=== PATIENT | male | born 1955 | race Caucasian/White ===

== ENCOUNTER → 2018-01-29 | Outpatient (CLI) | payer BC ==
--- NOTE | 2018-01-29 13:18 | US ---
EXAMINATION TYPE: US abdomen complete DATE OF EXAM: 01/29/2018 COMPARISON: NONE CLINICAL HISTORY: R10.11 Right Upper Quad Pain. EXAM MEASUREMENTS: Liver Length: 14.3 cm Gallbladder Wall: 0.1 cm CBD: 0.4 cm Spleen: 9.2 cm Right Kidney: 11.4 x 5.4 x 5.4 cm Left Kidney: 10.7 x 6.0 x 5.4 cm Pancreas: Tail obscured by overlying bowel gas Liver: wnl Gallbladder: No stones seen Evidence for sonographic Maddox's sign: no CBD: wnl Spleen: wnl Right Kidney: small cyst (2.7 x 1.9 x 2.3cm) on upper pole: appears have some debris Left Kidney: No hydronephrosis or masses seen Upper IVC: wnl Abd Aorta: Obscured by overlying bowel gas IMPRESSION: 1. Complex cyst upper pole right kidney
== END | disposition home or self-care (01) ==
LOC: RADUSWWP 08:54
PROVIDERS: ATTEND Family Medicine
DX: N28.1 Cyst of kidney, acquired (principal)
CPT/HCPCS: 76700

== ENCOUNTER → 2018-06-11 | Outpatient (CLI) | payer BC ==
--- NOTE | 2018-06-11 08:59 | XR ---
Cervical spine HISTORY: Neck pain 4 views of the cervical spine There is multilevel spondylosis present. Cervical vertebral bodies show preserved height, alignment, bone mineralization. Loss of disc height present especially at C4-5, C5-6. Minimal anterolisthesis gr orlin 1 C4-5. C7-T1 not seen with certainty. Prevertebral soft tissues are normal. Facet arthropathy ch anges are present. Odontoid view is limited. There are atherosclerotic calcifications in the carotid artery distribution. IMPRESSION: Degenerative disc disease and facet arthropathy. Cervical MRI may be of benefit. Limitati ons as described.
--- NOTE | 2018-06-11 09:04 | XR ---
Left wrist HISTORY: Left wrist pain 2 views of the left wrist There is arthropathy change with spurring, hypertrophic change, subchondral sclerosis and geode forma tion at the radiocarpal joint, radioulnar joint and intercarpal joints. Small ossific densities prese nt at the distal pole level of the scaphoid and volar and dorsal aspects of the wrist. Some degenerat lamin change present at the carpometacarpal joint of the first digit. Alignment is maintained. No fract ure or dislocation. IMPRESSION: Osteoarthritic changes.
== END | disposition home or self-care (01) ==
LOC: RADXRMAIN 08:29
PROVIDERS: ATTEND Family Medicine
DX: M19.032 Primary osteoarthritis, left wrist (principal); M50.30 Other cervical disc degeneration, unspecified cervical region; M46.82 Other specified inflammatory spondylopathies, cervical region
CPT/HCPCS: 72040

== ENCOUNTER → 2020-05-09 | Outpatient (CLI) | payer BC, MEDICARE ==
--- NOTE | 2020-05-10 10:45 | NM ---
EXAMINATION TYPE: NM thyroid image w uptake DATE OF EXAM: 05/10/2020 COMPARISON: NONE HISTORY: Change in way and position TECHNIQUE: Thyroid iodine uptake is calculated and images performed after the oral administration of 305 uCi 1-123 Capsule. FINDINGS: There is asymmetric distribution of activity within the left. The 4 hour iodine uptake is calculated at 4.4% (normal range 8-14%). The 24-hour iodine uptake is calculated at 10.3% (normal ran ge 15-35%). IMPRESSION: 1. Findings suggest hypothyroidism. Slightly reduced uptake involving the left lobe of thyroid may be positional recommend correlation with ultrasound to exclude nodule.
== END | disposition home or self-care (01) ==
LOC: RADNMMAIN 08:35
PROVIDERS: ATTEND Family Medicine
DX: R93.89 Abnormal findings on diagnostic imaging of other specified body structures (principal); E05.90 Thyrotoxicosis, unspecified without thyrotoxic crisis or storm
CPT/HCPCS: 78014; A9516

== ENCOUNTER → 2020-05-16 | Outpatient (CLI) | payer BC ==
--- NOTE | 2020-05-16 17:45 | CONS ---
CONSULTATION DATE OF SERVICE: 05/16/2020 This patient is a 65-year-old gentleman who has been evaluated in Sleep Center for possible obstructive sleep apnea-hypopnea syndrome. HISTORY OF PRESENT ILLNESS/SLEEP-WAKE EVALUATION: The patient's usual sleep schedule on weekdays is from 6 p.m. to 1:30 a.m. and on weekends from 10 p.m. until 7 a.m. Usually no problems with falling asleep. No TV in bedroom. Patient sleeps in different positions. He has loud snoring and, according to his , episodes of stopped breathing during sleep. He wakes up from sleep 3 times with 2 episodes of nocturia. During the day the patient is falling asleep, has episodes of irritability, depression and anxiety. [place] Sleepiness Scale is significantly increased to 13. He takes one nap at around 3 p.m. He drinks 2 caffeinated beverages during the day. No history of sleep paralysis, hypnagogic hallucinations or cataplexy. PAST MEDICAL HISTORY: Positive for hypertension, arthritis, depression. MEDICATIONS: Tamsulosin 0.4 mg twice a day, aripiprazole 5 mg once a day, naproxen 500 mg once a day, lisinopril 10 mg once a day, citalopram 40 mg once a day. SOCIAL HISTORY: Positive for smoking; quit 3 years ago. Alcohol consumption occasional. FAMILY HISTORY: Heart problems. REVIEW OF SYSTEMS: Multiple awakenings from sleep, sleepiness during the day. PHYSICAL EXAMINATION: GENERAL: A pleasant gentleman without distress. VITAL SIGNS: BP 125/80, HR 82, RR 15, height 5 feet 7 inches, weight 194.4, temperature 98.5, oxygen saturation at room air 96%. HEENT: PERRLA, EOMI. Evaluation of oropharynx showed tongue protrudes midline. Low position of soft palate. Mallampati III. NECK: Supple. No JVD. Thyroid is not palpable. Neck measures 17 inches in circumference. LUNGS: Clear to percussion and to auscultation. Good air exchange. No wheezing or rhonchi. HEART: S1, S2 regular. No murmurs, gallops or rubs. ABDOMEN: Soft and nontender. Bowel sounds are present. No organomegaly appreciated. EXTREMITIES: No clubbing or cyanosis. KNIT GOODS MENDER: Awake, alert, and oriented X3. Cranial nerves 2 to 7 intact. There is no fasciculation or atrophy. noted. No focal deficits observed. IMPRESSION: 1. Loud snoring, witnessed episodes of stopped breathing during sleep, wide neck at 17 inches, low position of soft palate, excessive daytime sleepiness, [place] Sleepiness Scale of 13; obstructive sleep apnea-hypopnea syndrome. 2. Obesity. BMI 30.3. 3. Hypertension. 4. History of arthritis. 5. Depression. PLAN: 1. Home sleep apnea test for evaluation of patient's breathing during sleep. 2. CPAP/BiPAP titration if sleep study confirms obstructive sleep apnea-hypopnea syndrome. 3. Preferable position during sleep on the side. 4. No driving if patient feels any sleepiness. 5. I will see patient for follow up visit to explain results of testing and following plan. Thank you very much for referring this patient for consultation. Sincerely, Dayday Curran MD, PhD, FAASM Diplomat of [place] [place] [employer] Risk Intern of [facility] [place] MMODL / IJN: [id number] /
== END | disposition home or self-care (01) ==
LOC: SLEEP 16:40
PROVIDERS: ATTEND Internal Medicine
DX: G47.33 Obstructive sleep apnea (adult) (pediatric) (principal); E66.9 Obesity, unspecified; F32.9 Major depressive disorder, single episode, unspecified; I10 Essential (primary) hypertension; Z87.39 Personal history of other diseases of the musculoskeletal system and connective tissue; Z79.899 Other long term (current) drug therapy; Z99.89 Dependence on other enabling machines and devices; Z79.1 Long term (current) use of non-steroidal anti-inflammatories (NSAID); Z68.30 Body mass index [BMI] 30.0-30.9, adult
CPT/HCPCS: 99211

== ENCOUNTER → 2020-06-01 | Outpatient (CLI) | payer BC, MEDICARE ==
--- NOTE | 2020-06-01 14:10 | US ---
EXAMINATION TYPE: US thyroid st tissue head/neck DATE OF EXAM: 06/01/2020 COMPARISON: NM 05/09/2020 CLINICAL HISTORY: 65-year-old male R94.6 Abnormal results of thyroid function studies. . TECHNIQUE: Multiple sonographic images of the thyroid gland are obtained. FINDINGS: GLAND SIZE: Right Lobe: 3.6 x 1.6 x 1.4 cm Overall Parenchyma: heterogenous Left Lobe: 3.5 x 1.5 x 1.7 cm Overall Parenchyma: heterogeneous Isthmus Thickness: 0.4 cm NODULES RIGHT: # of nodules measured on right: 1 1. 0.5 X 0.4 x 0.4 cm, mid, mixed cystic and solid, hypoechoic nodule, which is wider than tall, wi th smooth margins, without echogenic foci. Prior size: no previous LEFT: # of nodules measured on left: 0 ISTHMUS: # of nodules measured in the isthmus: 0 Bilateral neck scanned, no evidence of lymphadenopathy. IMPRESSION: A tiny 5 mm hypoechoic nodule at the right midpole. No suspicious nodule seen on the left to account for the asymmetric uptake on the patient's thyroid scan images. Findings on that study likely due to position.
== END | disposition home or self-care (01) ==
LOC: RADUSWWP 12:02
PROVIDERS: ATTEND Family Medicine
DX: E04.1 Nontoxic single thyroid nodule (principal)
CPT/HCPCS: 76536

== ENCOUNTER → 2020-08-29 | Outpatient (CLI) | payer BC, MEDICARE ==
--- NOTE | 2020-08-30 07:16 | SFUN ---
SLEEP CENTER FOLLOW UP NOTE DATE OF SERVICE: 08/29/2020 65 -year-old gentleman has been followed in Sleep Center for treatment of obstructive sleep apnea-hypopnea syndrome. The patient had home sleep apnea test which showed that patient has significant abnormalities of respiration and after that he was started on treatment with CPAP. I discussed results of diagnostic home sleep apnea test with the patient in details indicating to him that treatment is necessary. Today is his first visit after he was started on treatment with CPAP and patient is able to use CPAP equipment every night, feels better with the machine, sleeping better and feels better during the day. I checked the information from the machine. Usage is 26 nights over the month for more than 4 hours. Average usage is 7 hours 29 minutes. The machine is in automatic regimen of the pressure. Range of the pressure 5-15 with average pressure 12.7 cm of water. Apnea-hypopnea index is 3.6, which is normal. 95% of the leak is 25.7 L/minute which is acceptable. [place] Sleepiness Scale today is 8. MEDICATIONS: Tamsulosin 0.4 mg twice a day. Omeprazole 5 mg once a day. Naprosyn 500 mg once a day. Lisinopril 10 mg once a day. Citalopram 40 mg once a day. PHYSICAL EXAMINATION: GENERAL: Patient in no distress. VITAL SIGNS: BP 122/82, HR 84, weight 193.2, temperature 97.8, oxygen saturation at room air 96%. Oropharynx low position of soft palate, Mallampati 3. NECK: Supple, no JVD. Thyroid is not palpable. LUNGS: Clear to percussion and to auscultation. Good air exchange. No wheezing or rhonchi. HEART: S1, S2 regular. No murmurs, gallops, or rubs. ABDOMEN: Slightly obese. Soft and nontender. Bowel sounds are present. No organomegaly appreciated. EXTREMITIES: No clubbing or cyanosis. DIRECTOR OF FUNDRAISING: Awake, alert, and oriented X3. Cranial nerves 2 to 7 intact. There is no fasciculation or atrophy. noted. No focal deficits observed. IMPRESSION: 1. Moderate obstructive sleep apnea-hypopnea syndrome; apnea-hypopnea index 19.7 with oxygen desaturation to 86% by results of home sleep apnea test which may underestimate severity of sleep apnea. The patient demonstrated good compliance with treatment benefitting from treatment normal respiration on CPAP. 2. Mild obesity. 3. Hypertension. 4. History of arthritis. 5. History of depression. PLAN: 1. Patient will continue to use PAP equipment every night for the whole night. 2. Sleep hygiene with regular time in bed for at least 7-1/2 to 8 hours. 3. Precautions related to driving. No driving if feeling sleepiness. 4. I will maintain all necessary prescription for PAP supplies including mask, tube, filters. 5. Watching weight. 6. Follow-up visit in 6 months or earlier if patient has any problems. Thank you very much for allowing me to participate in management of your patient. Sincerely, Dayday Curran MD, PhD, FAASM Diplomat of [place] [employer] Glass Processing Worker of [facility] [place] MMODL / ROSELYN: [id number] /

== ENCOUNTER → 2021-02-28 | Outpatient (CLI) | payer BC, MEDICARE ==
--- NOTE | 2021-03-01 05:58 | SFUN ---
SLEEP CENTER FOLLOW UP NOTE DATE OF SERVICE: 02/28/2021 65-year-old gentleman has been followed in Sleep Center for treatment of obstructive sleep apnea-hypopnea syndrome. The patient continues to use his CPAP equipment every night for the whole night. He is using a fullface mask, asking to be sure the position of the mask is okay while he is using machine. I checked the position of the mask on his face and it is slightly low so position was adjusted and patient was taught how to put mask on properly. I checked his CPAP unit. Range of the pressure 5-15, average pressure 11.6, usage is 27/30 nights and 21/30 nights for more than 4 hours, average 7.1 hours per night. Leak is 37 L/minute but apnea-hypopnea index 3.0, which is absolutely perfect. [place] Sleepiness Scale today is 6. CURRENT MEDICATIONS: Lisinopril 10 mg once a day, citalopram 40 mg once a day, tamsulosin 0.4 mg twice a day, omeprazole 5 mg once a day, Lipitor at nighttime. PHYSICAL EXAMINATION: GENERAL: Patient in no distress. BP 105/70, HR 84, RR 15, height 5 feet 6 inches, weight 188 pounds, body mass index 30.3. Oropharynx: Low position of soft palate, Mallampati 3. NECK: Supple, no JVD. Thyroid is not palpable. LUNGS: Clear to percussion and to auscultation. Good air exchange. No wheezing or rhonchi. HEART: S1, S2 regular. No murmurs, gallops, or rubs. ABDOMEN: Soft and nontender. Bowel sounds are present. No organomegaly appreciated. EXTREMITIES: No clubbing or cyanosis. CLUTCH INSPECTOR: Awake, alert, and oriented X3. Cranial nerves 2 to 7 intact. There is no fasciculation or atrophy. noted. No focal deficits observed. IMPRESSION: 1. Moderate obstructive sleep apnea-hypopnea syndrome AHI 19.7 by results of home test. The patient demonstrated borderline compliance with treatment. Normal respiration on CPAP. 2. Mild obesity. 3. Hypertension. 4. History of arthritis. 5. History of depression. PLAN: 1. Patient will continue to use PAP equipment every night for the whole night. 2. Sleep hygiene with regular time in bed for at least 7-1/2 to 8 hours. 3. Precautions related to driving. No driving if feeling sleepiness. 4. I will maintain all necessary prescription for PAP supplies including mask, tube, filters. 5. Watching weight. 6. Follow-up visit in 6 months or earlier if patient has any problems. Thank you very much for allowing me to participate in management of your patient. Sincerely, Dayday Curran MD, PhD, FAASM Diplomat of [employer] Sleep Medicine Board of [place] [employer] Medicine Rn Review of [facility] [place] MMODL / MOSESN: [id number] /
== END ==
LOC: SLEEP 16:22
PROVIDERS: ATTEND Internal Medicine
DX: G47.33 Obstructive sleep apnea (adult) (pediatric) (principal); E66.9 Obesity, unspecified; I10 Essential (primary) hypertension; F32.A Depression, unspecified; Z87.39 Personal history of other diseases of the musculoskeletal system and connective tissue; Z99.89 Dependence on other enabling machines and devices; Z79.899 Other long term (current) drug therapy; Z68.30 Body mass index [BMI] 30.0-30.9, adult

== ENCOUNTER → 2021-08-29 | Outpatient (CLI) | payer BC, MEDICARE ==
--- NOTE | 2021-08-29 16:56 | P.PN ---
Subjective DATE: 08/29/2021 FOLLOW UP VISIT. Patient with obstructive sleep apnea hypopnea syndrome return to sleep center for follow-up visit. Patient is using PAP equipment every night for the whole night, getting PAP supplies in time. The patient does not have significant problems with the mask, PAP unit and humidification. [place] sleepiness scale is 9. I checked information from PAP unit. PAP unit pressure 07/22/2014, average 12.7 cm H2O. Usage is 70% for more then 4 hours, average 6.9 hours per night. Leak is 28l/m, which is slightly increased. Apnea Hypopnea Index is 3.2, which is normal. MEDICATIONS:1. Naproxen 2. Tamsulosin 3. Citalopram 4. Lisinopril 5. Atorvastatin 6. Aripiprazole During physical exam: GENERAL: A pleasant patient without any distress. VITAL SIGNS: BP 111/74, HR 86, RR 16 , weight 190, temperature 98.2, oxygen saturation at room air 97 . HEENT: PERRLA, EOMI.low position of soft palate, Mallapati 3 . NECK: Supple. No JVD. LUNGS: Clear to percussion and to auscultation. Good air exchange. No wheezing or rhonchi. HEART: S1, S2 regular. ABDOMEN: Soft and nontender.[] EXTREMITIES: No clubbing or cyanosis. MANAGER PORT: Awake, alert, and oriented x3. No focal deficit. Impressions: 1. Obstructive sleep apnea-hypopnea syndrome. Patient demonstrated good compliance with treatment, benefiting from treatment. 2. Mild obesity. 3. Hypertension. 4. History of arthritis. 5. History of depression. Plan: 1. Continue using PAP equipment every night for the whole night. 2. To change air filter at least 1-2 times per month. 3. PAP unit should stay lower then position of the head. 4. Advised patient to remove all remaining water from humidifier canister daily and make it dry after each usage. Refill canister with fresh distilled water before each usage. 5. Sleep hygiene with regular time in bed for at least 8 hours. 6. Precautions related to driving. No driving if feel any sleepiness. 7. I will maintain prescription for PAP supplies including mask, tube, filters. 8. Follow up visit in 6 months or earlier if patient has any problems. 9. Watching weight. Thank you very much for allowing me to participate in the management of your patient. Dayday Curran MD, PhD, FAASM. Diplomat of [place] [employer], Sleep Medicine Board by [place] [employer] Straw Hat Washer Operator of [facility] [place]
== END ==
LOC: SLEEP 15:58
PROVIDERS: ATTEND Internal Medicine
DX: G47.33 Obstructive sleep apnea (adult) (pediatric) (principal); E66.9 Obesity, unspecified; I10 Essential (primary) hypertension; F32.A Depression, unspecified; M19.90 Unspecified osteoarthritis, unspecified site; Z79.899 Other long term (current) drug therapy

== ENCOUNTER → 2021-10-09 | Outpatient (CLI) | payer BC, MEDICARE ==
--- NOTE | 2021-10-10 09:13 | NM ---
EXAMINATION TYPE: NM thyroid image w uptake DATE OF EXAM: 10/10/2021 COMPARISON: 05/09/2020 HISTORY: Hypothyroidism TECHNIQUE: Thyroid iodine uptake is calculated and images performed after the oral administration of 315 uCi 1-123 Capsule. FINDINGS: There is normal distribution of activity throughout the gland. The 4 hour iodine uptake is calculated at 5.8% (normal range 8-14%). The 24-hour iodine uptake is calculated at 19.1% (normal ra nge 15-35%). IMPRESSION: Reduced uptake compatible with hypothyroidism.
== END | disposition home or self-care (01) ==
LOC: RADNMMAIN 08:45
PROVIDERS: ATTEND Family Medicine
DX: E03.9 Hypothyroidism, unspecified (principal)
CPT/HCPCS: 78014; A9516

== ENCOUNTER → 2022-08-28 | Outpatient (CLI) | payer BC, MEDICARE ==
--- NOTE | 2022-08-28 16:17 | P.PN ---
Subjective DATE: 08/28/2022 FOLLOW UP VISIT. Patient with obstructive sleep apnea hypopnea syndrome return to sleep center for follow-up visit. Information from previous visit have been reviewed. Patient is using PAP equipment every night for the whole night, getting PAP supplies in time. The patient does not have significant problems with the mask, PAP unit and humidification. [place] sleepiness scale is 8, which is normal. I checked information from PAP unit. PAP unit pressure 5-15, average 12.3 cm H2O. Usage is 100 % for more then 4 hours, average 7 hours per night. Leak is 21.3 l/m, which is in acceptable range. Apnea Hypopnea Index is 2.7, which is normal. MEDICATIONS:1. Flomax 4 mg twice a day 2. Lisinopril 10 mg once a day 3. Atorvastatin 10 mg once a day 4. Citalopram 40 mg once a day 5. Aripiprazole 5 mg once a day During physical exam: GENERAL: A pleasant patient without any distress. VITAL SIGNS: BP 131/78, HR 76, RR 16 , weight 187.4, temperature 97.4, oxygen saturation at room air 97 % . HEENT: PERRLA, EOMI.low position of soft palate, Mallapati 3 . NECK: Supple. No JVD. LUNGS: Clear to percussion and to auscultation. Good air exchange. No wheezing or rhonchi. HEART: S1, S2 regular. ABDOMEN: Soft and nontender.[] EXTREMITIES: No clubbing or cyanosis. RESOURCE DEVELOPMENT MANAGER: Awake, alert, and oriented x3. No focal deficit. Impressions: 1. Obstructive sleep apnea-hypopnea syndrome. Patient demonstrated great compliance with treatment, benefiting from treatment. 2. Hypertension. 3. History of depression. 4. Mild obesity. 5. History of arthritis. Plan: 1. Continue using PAP equipment every night for the whole night. 2. To change air filter at least 1-2 times per month. 3. PAP unit should stay lower then position of the head. 4. Advised patient to remove all remaining water from humidifier canister daily and make it dry after each usage. Refill canister with fresh distilled water before each usage. 5. Sleep hygiene with regular time in bed for at least 8 hours. 6. Precautions related to driving. No driving if feel any sleepiness. 7. I will maintain prescription for PAP supplies including mask, tube, filters. 8. Watching weight. 9. Follow up visit in 6 months or earlier if patient has any problems. Thank you very much for allowing me to participate in the management of your patient. Dayday Curran MD, PhD, FAASM. Diplomat of [place] [employer], Sleep Medicine Board by [place] [employer] Aircraft Instrument Repairer of [facility] [place]
== END ==
LOC: 3 N SLEEP 15:56
PROVIDERS: ATTEND Internal Medicine
DX: G47.33 Obstructive sleep apnea (adult) (pediatric) (principal); I10 Essential (primary) hypertension; Z99.89 Dependence on other enabling machines and devices; F32.A Depression, unspecified; E66.9 Obesity, unspecified; M19.90 Unspecified osteoarthritis, unspecified site; Z79.899 Other long term (current) drug therapy
CPT/HCPCS: 99212

== ENCOUNTER → 2023-03-05 | Outpatient (CLI) | payer BC, MEDICARE ==
--- NOTE | 2023-03-05 17:01 | P.PN ---
Subjective DATE: 03/05/2023 FOLLOW UP VISIT. Patient with obstructive sleep apnea hypopnea syndrome return to sleep center for follow-up visit. Information from previous visit have been reviewed. Patient is using PAP equipment every night for the whole night, getting PAP supplies in time. Occasionally patient has snoring while using CPAP according to his . The patient does not have significant problems with the mask, PAP unit and humidification. [place] sleepiness scale is 7, which is normal. I checked information from PAP unit. PAP unit pressure 5-15, average 13.5 cm H2O. Usage is 90 % for more then 4 hours, average 6.6 hours per night. Leak is 10 l/m, which is in acceptable range. Apnea Hypopnea Index is 2.6, which is normal. MEDICATIONS:1. Flomax 0.4 mg twice a day 2. Lisinopril 10 mg once a day 3. Atorvastatin 10 mg once a day 4. Aripiprazole 5 mg once a day During physical exam: GENERAL: A pleasant patient without any distress. VITAL SIGNS: BP 123/77, HR 88, RR 16 , weight 182.8, temperature 98.3, oxygen saturation at room air 99 % . HEENT: PERRLA, EOMI.low position of soft palate, Mallapati 3 . NECK: Supple. No JVD. LUNGS: Clear to percussion and to auscultation. Good air exchange. No wheezing or rhonchi. HEART: S1, S2 regular. ABDOMEN: Soft and nontender.[] EXTREMITIES: No clubbing or cyanosis. GRID TRIMMER: Awake, alert, and oriented x3. No focal deficit. I slightly changed CPAP pressure up to the range 516.6 cm of water with the goal to prevent snoring. Impressions: 1. Obstructive sleep apnea-hypopnea syndrome. Patient demonstrated great compliance with treatment, benefiting from treatment. 2. Hypertension. 3. History of depression. 4. History of arthritis. 5. Mild obesity, patient lost 5 pounds since previous visit. 6. BPH. Plan: 1. Continue using PAP equipment every night for the whole night. 2. To change air filter at least 1-2 times per month. 3. PAP unit should stay lower then position of the head. 4. Advised patient to remove all remaining water from humidifier canister daily and make it dry after each usage. Refill canister with fresh distilled water before each usage. 5. Sleep hygiene with regular time in bed for at least 8 hours. 6. Precautions related to driving. No driving if feel any sleepiness. 7. I will maintain prescription for PAP supplies including mask, tube, filters. 8. Follow up visit in 6 months or earlier if patient has any problems. 9. Watching weight. Thank you very much for allowing me to participate in the management of your patient. Dayday Curran MD, PhD, FAASM. Diplomat of [employer] Medicine, Sleep Medicine Board by [employer] Medicine Insole Reinforcer of [facility] [place]
== END ==
LOC: 3 N SLEEP 16:17
PROVIDERS: ATTEND Internal Medicine
DX: G47.33 Obstructive sleep apnea (adult) (pediatric) (principal); I10 Essential (primary) hypertension; F32.A Depression, unspecified; M19.90 Unspecified osteoarthritis, unspecified site; E66.9 Obesity, unspecified; N40.0 Benign prostatic hyperplasia without lower urinary tract symptoms; Z99.89 Dependence on other enabling machines and devices; Z79.899 Other long term (current) drug therapy
CPT/HCPCS: 99212

== ENCOUNTER → 2023-09-16 | Outpatient (CLI) | payer MEDICARE ==
[2023-09-16 13:41] VITALS: BP 132/76; PULSE 98; RESP 16; TEMP 98.1
--- NOTE | 2023-09-16 18:34 | P.PROGSL ---
Subjective DATE: 09/16/2023 FOLLOW UP VISIT. Patient with obstructive sleep apnea hypopnea syndrome return to sleep center for follow-up visit. Information from previous visit have been reviewed. Recently patient developed some problems with a using cough CPAP equipment related to pressure and mask fitting. I checked information from PAP unit. PAP unit pressure 5-16.6 cm H2O. MEDICATIONS:1. Aripiprazole 5 mg once a day 2. Tamsulosin 0.4 mg twice a day 3. Atorvastatin 10 mg once a day 4. Lisinopril 10 mg once a day 5. Naproxen During physical exam: GENERAL: A pleasant patient without any distress. VITAL SIGNS: Please see below, weight is 176.6 pounds, patient lost 6 pounds comparing with previous visit, BMI 28.8. HEENT: PERRLA, EOMI.low position of soft palate, Mallapati 3 . NECK: Supple. No JVD. LUNGS: Clear to percussion and to auscultation. Good air exchange. No wheezing or rhonchi. HEART: S1, S2 regular. ABDOMEN: Soft and nontender.[] EXTREMITIES: No clubbing or cyanosis. PETROLEUM PRODUCTS DISTRICT SUPERVISOR: Awake, alert, and oriented x3. No focal deficit. Impressions: 1. Obstructive sleep apnea-hypopnea syndrome. Patient has difficulties to use CPAP equipment secondary to pressure and mask fitting at the present time. 2. Hypertension. 3. History of depression. 4. BPH. 5. History of arthritis. Pressure was changed down to the level 5 to 14 cm of water. Plan: 1. Continue using PAP equipment every night for the whole night. Patient promised to follow recommendations. 2. To change air filter at least 1-2 times per month. 3. PAP unit should stay lower then position of the head. 4. Advised patient to remove all remaining water from humidifier canister daily and make it dry after each usage. Refill canister with fresh distilled water before each usage. 5. Sleep hygiene with regular time in bed for at least 8 hours. 6. Precautions related to driving. No driving if feel any sleepiness. 7. I will maintain prescription for PAP supplies including mask, tube, filters. 8. Follow up visit in 3 months or earlier if patient has any problems. 9. Watching weight. Thank you very much for allowing me to participate in the management of your patient. Dayday Curran MD, PhD, FAASM. Diplomat of [place] [employer] Medicine, Sleep Medicine Board by [place] [employer] Firmware Software Verification Engineer of [facility] [place] Objective - Vital Signs Vital Signs: Vital Signs Temp 98.1 F 09/16/23 13:40 Pulse 98 09/16/23 13:40 Resp 16 09/16/23 13:40 BP 132/76 09/16/23 13:40 Pulse Ox 96 09/16/23 13:40 FiO2 Intake & Output 09/15/23 09/16/23 09/16/23 18:59 06:59 18:59 Weight 80.002 kg
== END ==
LOC: 3 N SLEEP 13:12
PROVIDERS: ATTEND Internal Medicine
DX: G47.33 Obstructive sleep apnea (adult) (pediatric) (principal); I10 Essential (primary) hypertension; N40.0 Benign prostatic hyperplasia without lower urinary tract symptoms; Z87.39 Personal history of other diseases of the musculoskeletal system and connective tissue; Z99.89 Dependence on other enabling machines and devices; Z86.69 Personal history of other diseases of the nervous system and sense organs; Z79.899 Other long term (current) drug therapy
CPT/HCPCS: 99212

== ENCOUNTER → 2024-02-17 | Outpatient (CLI) | payer MEDICARE ==
[2024-02-17 14:51] VITALS: BP 132/82; PULSE 92; RESP 16; TEMP 97.9
--- NOTE | 2024-02-17 15:52 | P.PROGSL ---
Subjective DATE: 02/17/2024 FOLLOW UP VISIT. Patient with obstructive sleep apnea hypopnea syndrome return to sleep center for follow-up visit. Information from previous visit have been reviewed. Patient is using PAP equipment every night for the whole night, getting PAP supplies in time. The patient does not have significant problems with the mask, PAP unit and humidification. [place] sleepiness scale is 5, which is normal. I checked information from PAP unit. PAP unit pressure 5-14, average 11 cm H2O. Usage is 80% for more then 4 hours, average 6.7 hours per night. Leak is increased to 32 l/m, which is in acceptable range. Apnea Hypopnea Index is borderline 5.2. MEDICATIONS have been reviewed, please see below. During physical exam: GENERAL: A pleasant patient without any distress. VITAL SIGNS: Please see below, weight is 173 lbs. HEENT: PERRLA, EOMI.low position of soft palate, Mallapati 3. NECK: Supple. No JVD. LUNGS: Clear to percussion and to auscultation. Good air exchange. No wheezing or rhonchi. HEART: S1, S2 regular. ABDOMEN: Soft and nontender.[] EXTREMITIES: No clubbing or cyanosis. ASSISTANT CENTER MANAGER: Awake, alert, and oriented x3. No focal deficit. Impressions: 1. Obstructive sleep apnea-hypopnea syndrome. Patient demonstrated good compliance with treatment, benefiting from treatment. 2. Hypertension. 3. History of depression. 4. History of arthritis. 5. BPH. Plan: 1. Continue using PAP equipment every night for the whole night. 2. Sleep hygiene with regular time in bed for at least 7.5-8 hours 3. PAP unit should stay lower then position of the head. 4. Advised patient to remove all remaining water from humidifier canister daily and make it dry after each usage. Refill canister with fresh distilled water before each usage. 5. Watching weight. 6. Precautions related to driving. No driving if feel any sleepiness. 7. I will maintain prescription for PAP supplies including mask, tube, filters. 8. Follow up visit in 8 months or earlier if patient has any problems. Thank you very much for allowing me to participate in the management of your patient. Dayday Curran MD, PhD, FAASM. Diplomat of [place] [employer], Sleep Medicine Board by [place] Seo Marketing Specialist of [facility] [place] [facility] [place] Objective - Vital Signs Vital Signs: Vital Signs Temp 97.9 F 02/17/24 14:49 Pulse 92 02/17/24 14:49 Resp 16 02/17/24 14:49 BP 132/82 02/17/24 14:49 Pulse Ox 97 02/17/24 14:49 FiO2 Intake & Output 02/16/24 02/17/24 02/17/24 18:59 06:59 18:59 Weight 78.471 kg Home Medications: Home Medications Medication Instructions Recorded Confirmed Type ARIPiprazole [Aripiprazole] 5 mg PO DAILY 02/17/24 02/17/24 History Atorvastatin [Lipitor] 10 mg PO DAILY 02/17/24 02/17/24 History Naproxen [EC-Naprosyn] 500 mg PO BID 02/17/24 02/17/24 History Tamsulosin [Flomax] 0.4 mg PO DAILY 02/17/24 02/17/24 History lisinopriL [Zestril] 10 mg PO DAILY 02/17/24 02/17/24 History
== END ==
LOC: 3 N SLEEP 14:22
PROVIDERS: ATTEND Internal Medicine
DX: G47.33 Obstructive sleep apnea (adult) (pediatric) (principal); I10 Essential (primary) hypertension; N40.0 Benign prostatic hyperplasia without lower urinary tract symptoms; F32.A Depression, unspecified; Z87.39 Personal history of other diseases of the musculoskeletal system and connective tissue; Z99.89 Dependence on other enabling machines and devices; Z79.899 Other long term (current) drug therapy
CPT/HCPCS: 99212

== ENCOUNTER → 2024-10-12 | Outpatient (CLI) | payer MEDICARE ==
[2024-10-12 13:23] VITALS: BP 137/81; PULSE 84; RESP 16; TEMP 98.1
--- NOTE | 2024-10-12 13:30 | P.PROGSL ---
Subjective DATE: 10/12/2024 FOLLOW UP VISIT. Patient with obstructive sleep apnea hypopnea syndrome return to sleep center for follow-up visit. Information from previous visit have been reviewed. Patient is using PAP equipment every night for the whole night, getting PAP supplies in time. The patient does not have significant problems with the mask, PAP unit and humidification. [place] sleepiness scale is 6, which is normal. I checked information from PAP unit. PAP unit pressure 5-14, average 9.3 cm H2O. Usage is 90% for more then 4 hours, average 5.9 hours per night. Leak is 18 l/m, which is in acceptable range. Apnea Hypopnea Index is 2.3, which is normal. MEDICATIONS have been reviewed, please see below. During physical exam: GENERAL: A pleasant patient without any distress. VITAL SIGNS: Please see below, weight is 174 lbs. HEENT: PERRLA, EOMI.low position of soft palate, [place]ati 3. NECK: Supple. No JVD. LUNGS: Clear to percussion and to auscultation. Good air exchange. No wheezing or rhonchi. HEART: S1, S2 regular. ABDOMEN: Soft and nontender.[] EXTREMITIES: No clubbing or cyanosis. OVEN HEATER: Awake, alert, and oriented x3. No focal deficit. Impressions: 1. Obstructive sleep apnea-hypopnea syndrome. Patient demonstrated great compliance with treatment, benefiting from treatment. 2. Hypertension. 3. History of depression. 4. BPH. 5. History of arthritis. Plan: 1. Continue using PAP equipment every night for the whole night. 2. Sleep hygiene with regular time in bed for at least 7.5-8 hours 3. PAP unit should stay lower then position of the head. 4. Advised patient to remove all remaining water from humidifier canister daily and make it dry after each usage. Refill canister with fresh distilled water before each usage. 5. Watching weight. 6. Precautions related to driving. No driving if feel any sleepiness. 7. I will maintain prescription for PAP supplies including mask, tube, filters. 8. Follow up visit in 8 months or earlier if patient has any problems. Thank you very much for allowing me to participate in the management of your patient. Dayday Curran MD, PhD, FAASM. Diplomat of [place] [employer], Sleep Medicine Board by [employer] Profiler Operator of [facility] [place] Objective - Vital Signs Vital Signs: Vital Signs Temp 98.1 F 10/12/24 13:22 Pulse 84 10/12/24 13:22 Resp 16 10/12/24 13:22 BP 137/81 10/12/24 13:22 Pulse Ox 96 10/12/24 13:22 FiO2 Intake & Output 10/11/24 10/12/24 10/12/24 18:59 06:59 18:59 Weight 78.925 kg Home Medications: Home Medications Medication Instructions Recorded Confirmed Type ARIPiprazole [Aripiprazole] 5 mg PO DAILY 02/17/24 02/17/24 History Atorvastatin [Lipitor] 10 mg PO DAILY 02/17/24 02/17/24 History Naproxen [EC-Naprosyn] 500 mg PO BID 02/17/24 02/17/24 History Tamsulosin [Flomax] 0.4 mg PO DAILY 02/17/24 02/17/24 History lisinopriL [Zestril] 10 mg PO DAILY 02/17/24 02/17/24 History
== END ==
LOC: 3 N SLEEP 13:02
PROVIDERS: ATTEND Internal Medicine
DX: G47.33 Obstructive sleep apnea (adult) (pediatric) (principal); I10 Essential (primary) hypertension; N40.0 Benign prostatic hyperplasia without lower urinary tract symptoms; F32.A Depression, unspecified; Z87.39 Personal history of other diseases of the musculoskeletal system and connective tissue; Z99.89 Dependence on other enabling machines and devices
CPT/HCPCS: 99212

== ENCOUNTER → 2024-10-19 | Outpatient (CLI) | payer MEDICARE ==
[2024-10-19 18:25] LABS: HCT 43.5 % (39.6-50.0); HGB 13.0 g/dL (13.0-17.0); MCH 21.7 pg (27.0-32.0); MCHC 29.9 g/dL (32.0-37.0); MCV 72.7 FL (80.0-97.0); NRBC Per 100 WBC 0 X 10*3/uL (0.00-0.01); Platelet Count 293 X 10*3/uL (140-440); RBC 5.98 X 10*6/uL (4.40-5.60); RDW 16.2 % (11.5-14.5); WBC 11.52 X 10*3/uL (4.50-10.00)
[2024-10-19 19:20] LABS: Bilirubin,Urine Negative (Negative); Blood,Urine Negative (Negative); Color,Urine Yellow (Yellow); Ketones,Urine Negative (Negative); Nitrite,Urine Negative (Negative); PH, Urine 6.0; Specific Gravity,Urine 1.013 (1.001-1.030); Urobilinogen,Urine 0.2 E.U./DL
[2024-10-19 19:30] LABS: Anion Gap 12.30 mmol/L (4.00-12.00); BUN/Creat Ratio 15.91 Ratio (12.00-20.00); Blood Urea Nitrogen 17.5 mg/dL (9.0-27.0); Calcium 10.1 mg/dL (8.7-10.3); Carbon Dioxide 25.7 mmol/L (21.6-31.8); Chloride 103 mmol/L (96-109); Glucose 118 mg/dL (70-110); Potassium 4.1 mmol/L (3.5-5.5); Sodium 141 mmol/L (135-145)
== END | disposition home or self-care (01) ==
LOC: LABPAT 13:58
PROVIDERS: ATTEND Urology
DX: Z01.812 Encounter for preprocedural laboratory examination (principal); N40.1 Benign prostatic hyperplasia with lower urinary tract symptoms; N13.8 Other obstructive and reflux uropathy
CPT/HCPCS: 80048; 81003; 85027; 87086

== ENCOUNTER → 2024-10-21 | Outpatient (CLI) | payer MEDICARE | END | disposition home or self-care (01) | LOC: LABWHC1 12:41 | PROVIDERS: ATTEND Anesthesiology | DX: Z53.9 Procedure and treatment not carried out, unspecified reason (principal) ==